=== PATIENT | male | born 1985 | race Caucasian/White ===

== ENCOUNTER 2024-08-16 15:46 | Emergency (ER) | payer BC | END 2024-08-16 17:00 | disposition home or self-care (01) | LOC: MW.ED 15:46 | DX: H00.012 Hordeolum externum right lower eyelid (principal); I10 Essential (primary) hypertension; Z79.899 Other long term (current) drug therapy; Z75.8 Other problems related to medical facilities and other health care | CPT/HCPCS: 99282; 99283 ==